=== PATIENT | female | born 1990 | race African-American/Black ===

== ENCOUNTER 2021-05-31 15:24 | Emergency (ER) | payer SELFPAY ==
[~2021-05-31] VITALS: Ht 172.7 cm; Wt 75.0 kg
[2021-05-31] MEDS ORDERED: ACETAMINOPHEN 325MG TABLET PO ONE (16:30)
[2021-05-31] MEDS ORDERED: IBUPROFEN 600MG TABLET PO ONE (16:30)
[2021-05-31] MEDS ORDERED: NAPR-1176 MT (17:05)
[2021-05-31 17:20] VITALS: BP 131/71
== END 2021-05-31 17:20 | disposition home or self-care (01) ==
LOC: ER 15:24
DX: S09.8XXA Other specified injuries of head, initial encounter (principal); M54.6 Pain in thoracic spine; M79.642 Pain in left hand; V49.59XA Passenger injured in collision with other motor vehicles in traffic accident, initial encounter; Y93.89 Activity, other specified; Y92.89 Other specified places as the place of occurrence of the external cause; Y99.8 Other external cause status
CPT/HCPCS: 81025; 99283